=== PATIENT | male | born 1950 | race Caucasian/White ===

== ENCOUNTER 2024-11-20 10:18 | Outpatient (CLI) | payer MEDICARE, SELFPAY ==
[2024-11-20 14:22] LABS: Nucleated Red Blood Cells % 0 %
[2024-11-20 14:36] LABS: Hematocrit 46.8 % (42.0-52.0); Hemoglobin 15.0 g/dL (14.1-18.0); Immature Granulocytes % 0.3 %; Mean Corpuscular HGB Conc 32.1 g/dL (31.8-35.4); Mean Corpuscular Hemoglobin 29.2 pg (27.0-31.2); Mean Corpuscular Volume 91.1 fl (80-94); Platelet Count 248 K/mm3 (142-424); Red Blood Count 5.14 M/mm3 (4.60-6.20); Red Cell Distribution Width-SD 50.4 fL; White Blood Count 8.0 K/mm3 (4.8-10.8)
[2024-11-20 14:52] LABS: Alanine Aminotransferase 14 U/L (12-78); Albumin Level 4.4 g/dl (3.5-5.0); Albumin/Globulin Ratio 1.8 (1.1-1.8); Alkaline Phosphatase 57 U/L (38-126); Anion Gap 15.8 mEq/L (5-15); Aspartate Amino Transferase 18 U/L (17-59); Bilirubin,Total 0.7 mg/dl (0.2-1.3); Blood Urea Nitrogen 21 mg/dl (9-20); Calcium 9.0 mg/dl (8.4-10.2); Carbon Dioxide 27 mmol/L (22.0-30.0); Chloride 100 mmol/L (98-107); Cholesterol 208 mg/dl (140-200); Creatinine,Serum 0.80 mg/dl (0.66-1.25); Estimated Glomerular Filt Rate 95 ml/min (>60); GFR (African American) 115 ML/MIN (>60); Globulin 2.4 g/dL (1.3-3.2); Glucose 88 mg/dl (74-100); HDL Cholesterol 37 mg/dl (40-60); Potassium 4.8 mmoL/L (3.5-5.1); Sodium 138 mmol/L (136-145); Total Protein,Serum 6.8 g/dl (6.3-8.2); Triglycerides 122 mg/dl (30-150)
[2024-11-20 15:09] LABS: T4 (Thyroxine) 8.4 ug/dl (5.53-11.0)
[2024-11-20 15:22] LABS: Thyroid Stimulating Hormone 1.55 uIU/mL (0.465-4.68)
[2024-11-20 16:28] LABS: Hepatitis C Ab Qual. W/ RFX NEGATIVE (Negative)
== END 2024-11-20 23:59 | disposition home or self-care (01) ==
LOC: LAB.DROPOF 11-23 10:19
PROVIDERS: PCP Nurse Practitioner Family; Visit Provider Nurse Practitioner Family
DX: Z11.59 Encounter for screening for other viral diseases (principal); R53.83 Other fatigue; E66.9 Obesity, unspecified
CPT/HCPCS: 80053; 80061; 84436; 84443; 85025; 86803; 87389